=== PATIENT | male | born 1940 | race Caucasian/White ===

== ENCOUNTER → 2017-01-12 | Outpatient (CLI) | payer OTHER ==
[~2017-01-12] MED LIST: ASPCH81 PO; CHOL100010 PO; LISI20TA55 PO; PRED1SUS3 OPL; SIMV40TA2 PO
[2017-01-12 13:03] LABS: BASO % 0.5 %; BASO ABS # 0.04 K/uL (0-0.2); COMPLETE YES; EOS % 5.8 %; HEMATOCRIT 47.2 % (42-52); IG% 0.4 %; LYMPH % 37.8 %; LYMPH ABS # 3.19 K/uL (1.2-3.4); MEAN CELL VOLUME 90.9 fL (80-100); MEAN CORPUSCULAR HEMOGLOBIN 31.6 pg (25-34); MEAN CORPUSCULAR HGB CONC 34.7 g/dl (32-36); MEAN PLATELET VOLUME 10.6 fL (7.4-10.4); MONO % 7.1 %; NEUT % 48.4 %; PLATELET COUNT 206 K/uL (130-400); RED BLOOD COUNT 5.19 M/uL (4.7-6.1); WHITE BLOOD COUNT 8.45 K/uL (4.8-10.8)
[2017-01-12 13:56] LABS: ESTIMATED AVERAGE GLUCOSE 131 mg/dl; HA1C FLAG Normal (Normal)
[2017-01-12 14:16] LABS: BLOOD UREA NITROGEN 21 mg/dl (7-18); BUN/CREATININE RATIO 13.9 (10-20); CALCIUM 9.2 mg/dl (8.5-10.1); CARBON DIOXIDE 26 mmol/L (21-32); CHLORIDE 103 mmol/L (98-107); GLUCOSE 109 mg/dl (70-99); POTASSIUM 4.3 mmol/L (3.5-5.1); SODIUM 138 mmol/L (136-145)
== END | disposition home or self-care (01) ==
LOC: C.LAB 12:11
PROVIDERS: ATTEND Internal Medicine Geriatric Medicine
DX: R73.9 Hyperglycemia, unspecified (principal); N18.9 Chronic kidney disease, unspecified; I12.9 Hypertensive chronic kidney disease with stage 1 through stage 4 chronic kidney disease, or unspecified chronic kidney disease; G47.30 Sleep apnea, unspecified

== ENCOUNTER → 2017-03-26 | Outpatient (CLI) | payer OTHER ==
--- NOTE | 2017-03-27 06:34 | PAP/PSG TECHNICIAN REPORT ---
[facility] [employer] Polysomnogram Report Study name: None Report date: 03/27/2017 Study date: 03/26/2017 Referring Physician: JOCELYNE SANDERS M.D. Name: RADHA PEDROZA Interpreting Physician: Brock Bradford D.O. Date of : 1940 [employer]: Jaylen Mccain RPSGT. Sex: Male Age: 76 StudyType: PSG PAP Weight: 267 lbs Height: 76 years, Height 5' 6" BMI: 43.09 Medications: SIMVASTATIN 40 MG, ASPIRIN 81 MG, LISINOPRIL-HYDROCHLOROTHIAZIDE 20-25 MG, VITAMIN D 1000 UNITS Patient History PATIENT HAS HISTORY OF CHRONIC KIDNEY DISEASE, DYSLIPIDEMIA, SEVERE SLEEP APNEA AND SHORTNESS OF BREATH. HE HAD A SLEEP STUDY DONE IN 2008 AND IS CURRENTLY WEARING CPAP. HE IS HERE FOR AN UPDATE ON HIS CPAP SETTINGS. ESS = 15 RM 6 Parameters Monitored NPSG: E1-M2, E2-M1, Fp1-M2, Fp2-M1, F3-M2, F4-M2, F4-M1, C3-M2, C4-M2, C4-M1, O1-M2, O2-M2, O2-M1, T3-M2, T4-M1, P3-M2, P4-M1, CHIN1, CHIN2, HR, EKG, Legs, PFLOW, SNOR, FLOW, CFLOW, Tidal Volume, THOR, ABDO, SpO2, PLTH, CPRESS, ETCO2 Wave, ETCO2, pH Sleep Architecture Sleep Stages Time at Lights Off 10:31:15 PM STAGES Time (min.) TST (%) Time at Lights On 5:19:45 AM Wake 58.0 -- Total Recording Time (TRT) 409.00 min. N1 35.5 10 Total Sleep Period (TSP) 384.0 min. N2 224.0 64 Total Sleep Time (TST) 350.5min. N3 11.0 3 Awake Time 58.5 min. REM 80.0 23 Wake after Sleep Onset 39.0 min. Sleep Efficiency (SE) 86 % Sleep Onset Latency (RUPALI) 19.0 min. Number of Stage 1 Shifts None Awakenings 18 Stage Changes 88 Number of REM periods 5 REM 80.0 23 REM Latency 63.0 min. NREM 270.5 77 Body Position Analysis Supine Right Left Side Prone Vertical Total Sleep Time (min.) 231.9 162.3 0.0 162.28 0.0 0.0 Total Sleep Time (%) 54% 46% 0% 46 0% N/A% Total Sleep Time REM (min.) 24.5 55.5 0.0 None 0.0 0.0 Total Sleep Time NREM (min.) 163.7 106.8 0.0 None 0.0 0.0 Intermittent Wake (min.) 43.7 14.3 0.0 None 0.0 0.0 Total Sleep Period (%) 54% None None None None None Arousals Myoclonus (PLM) * Events Count Index Events Count Index Spontaneous 33 6 Events Awake (PLMW) 35 36.2 Respiratory 11 1.9 Events Asleep w/ Arousal (PLMA) 28 4.8 PLM 28 5 Events Asleep w/o Arousal (PLMS) 316 54.1 Snoring 7 1 Total Asleep 344 58.9 Total 79 14 Total 379 56 Respiratory Analysis * CA OA MA CH H RERA Total Count 0 0 0 0 23 9 23 Index 0.0 0.0 0.0 0 3.9 2 5.5 Mean Duration 0.0 0.0 0.0 0.00 19.0 17.2 18.5 Longest Duration 0.0 0.0 0.0 0.00 0.0 23.2 27.9 Respiratory Event Summary Total Supine ~Supine Right Left Prone REM NREM Apneas Count 0 0 0 0 N/A N/A 0 0 Index 0.0 0 0 0.0 N/A N/A 0 0 Hypopneas (4% Desat) Count 23 15 8 8 N/A N/A 14 9 Index 3.9 4.8 3 3.0 N/A N/A 10.5 2.0 Apneas & All Hypopneas Count 23 15 8 8 N/A N/A 14 9 Index 3.9 5 3 3 N/A N/A 10.5 2.0 Respiratory Events (Final Armature Tester+All Hyp+RERA) Count 23 24 8 8 N/A N/A 14 9 Index 5.5 8 3 3.0 N/A N/A 11.3 3.8 Respiratory Related Arousal Count 11 24 0 0 N/A N/A 2 9 Index 1.9 4 0 0 N/A N/A 2 2 Snoring Analysis Supine Right Left Prone REM NREM Total Snore duration 3.6 min Snores count 108 44 N/A N/A 32 120 152 Snore mean duration 1.4 Sec Snores index 34 16 N/A N/A 24.0 26.6 26.0 TST with snoring (%) 1.0% Desaturation Event Summary: Minimum %SpO2 Event Count Mean/Min/Max Duration(sec.) Desaturation Index % Time In Bed > 90 28 41.3 / 13.0 / 71.1 4.2 99.0 86 - 90 4 18.5 / 13.0 / 25.8 56.4 1.0 81 - 85 0 N/A 0.0 0.0 76 - 80 0 N/A 0.0 0.0 71 - 75 0 N/A 0.0 0.0 66 - 70 0 N/A 0.0 0.0 61 - 65 0 N/A 0.0 0.0 56 - 60 0 N/A 0.0 0.0 51 - 55 0 N/A 0.0 0.0 < 50 0 N/A 0.0 0.0 Total REM NREM Awake <50% 0.0 min. 0.0 min. 0.0 min. 0.0 min. 51 - 60% 0.0 min. 0.0 min. 0.0 min. 0.0 min. 61 - 70% 0.0 min. 0.0 min. 0.0 min. 0.0 min. 71 - 80% 0.0 min. 0.0 min. 0.0 min. 0.0 min. 81 - 90% 4.3 min. 1.1 min. 2.0 min. 1.2 min. 91 - 100% 403.4 min. 78.9 min. 268.5 min. 55.9 min. Average 93 93 93 93 Minimum SpO2 86 88 86 87 Desaturation Event Index 4.1 9.8 2.4 4.1 # Desat. Events below 89% 4 1 2 1 Time(%) with Saturation below 89% 0.2 0.0 0.1 0.0 Time(min.) with Saturation below 89% 0.6 0.1 0.4 0.1 Time (mins) REM (mins) NREM (mins) % of TST SpO2 Below 90% 12 4 N8 0.3 SpO2 Below 88% 1 0 0 0 Heart Rate Analysis Min (bpm) Max (bpm) Average (bpm) Awake 51 80 63 NREM 46 78 56 REM 46 70 57 Overall 46 78 57 Supplemental O2 Values Minimum O2 level: None Value Start Time End Time [employer] Comments Mr. Pedroza slept in the right and supine positions. No cardiac arrhythmia noted. Leg movements noted. No bruxism noted. CPAP was initiated at +4 CMH2O and up-titrated to an optimal level of +14 CMH2O, which nearly eliminated all respiratory events and snoring. A Resmed Mirage Quattro full face size medium mask was used during titration Mr. Pedroza awoke to use the restroom 0 times during the night. Mr. Pedroza stated I slept as well as I do when I am in my own bed. The final report will be interpreted and signed by a sleep physician. The completed physician report will then be placed in the patient medical record. Therapy Event: Therapy (cm H20) 4 6 7 8 9 10 11 13 14 Total Time at Pressure (min.) 41.4 11.1 62.2 99.9 113.7 37.0 12.3 5.6 25.3 TST at Pressure (min.) 14.4 11.1 47.2 98.4 108.7 36.5 9.3 5.6 19.3 # Periods 1 1 1 1 1 1 1 1 1 Sleep Onset (min.) 19.0 0.0 0.0 0.0 0.0 0.0 0.0 0.0 0.0 REM Onset (min.) N/A N/A 29.6 83.9 0.0 18.8 0.0 N/A N/A Sleep Efficiency % 34 100 75 98 95 98 75 100 76 Wakefulness (%) 65.3 0.0 24.1 1.5 4.4 1.4 24.5 0.0 23.7 Wakefulness (min.) 27.0 0.0 15.0 1.5 5.0 0.5 3.0 0.0 6.0 NREM 1 (%) 16.9 0.0 18.5 7.5 5.3 1.4 20.4 0.0 2.0 NREM 1 (min.) 7.0 0.0 11.5 7.5 6.0 0.5 2.5 0.0 0.5 NREM 2 (%) 17.8 100.0 29.2 75.0 57.3 61.5 36.8 100.0 56.6 NREM 2 (min.) 7.4 11.1 18.2 74.9 65.2 22.8 4.5 5.6 14.3 NREM 3 (%) 0.0 0.0 0.0 0.0 5.7 0.0 0.0 0.0 17.8 NREM 3 (min.) 0.0 0.0 0.0 0.0 6.5 0.0 0.0 0.0 4.5 REM (%) 0.0 0.0 28.1 16.0 27.3 35.8 18.3 0.0 0.0 REM (min.) 0.0 0.0 17.5 16.0 31.0 13.3 2.2 0.0 0.0 # Arousals 9 5 15 26 11 4 3 3 3 Arousal Index 37.6 27.1 19.1 15.9 6.1 6.6 19.4 32.0 9.3 # Snore 11 11 7 39 49 12 9 6 8 Snore Index 46.0 59.6 8.9 23.8 27.0 19.7 58.3 63.9 24.8 AHI 16.7 5.4 3.8 1.8 2.2 8.2 6.5 0.0 6.2 AHI Supine 16.7 5.4 0.0 N/A 1.4 8.2 6.5 0.0 6.2 AHI Non-Supine N/A N/A 4.4 1.8 5.2 N/A N/A N/A N/A NREM AHI 16.7 5.4 0.0 0.0 1.5 0.0 0.0 0.0 6.2 REM AHI N/A N/A 10.3 11.3 3.9 22.6 26.7 N/A N/A RDI 16.7 10.8 3.8 1.8 3.3 9.9 25.9 21.3 6.2 # Obstructive 0 0 0 0 0 0 0 0 0 # Central Ap 0 0 0 0 0 0 0 0 0 # Mixed 0 0 0 0 0 0 0 0 0 # Hypopneas 4 1 3 3 4 5 1 0 2 RERAS 0 1 0 0 2 1 3 2 0 Total Respiratory Events 4 2 3 3 6 6 4 2 2 Time Below SpO2 89.00% (min.) 0.0 0.0 0.0 0.0 0.4 0.1 0.0 0.0 0.0 Mean NREM SpO2 (%) 93 93 94 94 93 93 93 93 93 Mean REM SpO2 (%) N/A N/A 94 94 94 92 93 N/A N/A Mean Sleep SpO2 (%) 93 93 94 94 93 93 93 93 93 Min NREM SpO2 (%) 89 91 90 91 86 89 91 91 89 Min REM SpO2 (%) N/A N/A 91 91 91 88 91 N/A N/A Position Supine (min.) 14.4 11.1 6.6 0.0 85.4 36.5 9.3 5.6 19.3 Position Non-supine (min.) 0.0 0.0 40.6 98.4 23.3 0.0 0.0 0.0 0.0 LM Index Sleep 25.1 43.3 80.1 114.0 35.3 21.4 0.0 0.0 9.3 LM Index NREM 25.1 43.3 107.2 129.6 44.8 30.9 0.0 0.0 9.3 LM Index REM N/A N/A 34.3 33.8 11.6 4.5 0.0 N/A N/A Mean Heart Rate (bpm) 60 57 55 56 57 57 58 57 56 Min Heart Rate (bpm) 53 50 46 47 50 48 53 52 51
--- NOTE | 2017-03-29 11:53 | POLYSOMNOGRAPH REPORT ---
REFERRING PHYSICIAN: Dragan Beltran MD CLINICAL DATA: The patient is a 76-year-old male with a history of severe sleep apnea, diagnosed in approximately 2008. He last had a CPAP titration on 06/07/2010 and had a final pressure of 8 cm. The patient has fatigue. He completed the [place] sleepiness scale and had a score of 15. He has difficulty wearing his CPAP for longer than 4 or 5 hours at night. He is referred back for a CPAP retitration study. This was an in-lab study. SLEEP ARCHITECTURE: The total sleep period was 384.0 minutes. The total sleep time was 350.5 minutes. The sleep efficiency was mildly reduced at 86%. The sleep onset latency was top normal at 19 minutes. Wake after sleep onset was 39 minutes. REM latency was normal at 63 minutes. Sleep consisted of stage N1 at 10%, stage N2 at 64%, stage N3 at 3%, and stage REM 23%. AROUSAL DATA: The patient had a total of 79 arousals including 33 spontaneous, 11 respiratory, 28 PLMs, and 7 snoring arousals. The arousal index was 14. PERIODIC LIMB MOVEMENT DATA: The patient had a total of 344 periodic limb movements of sleep for an index of 58.9, which is severely elevated. There were 28 arousals for a PLM arousal index of 4.8. ELECTROCARDIOGRAM: The underlying cardiac rhythm was normal sinus. The cardiac rates ranged from 46-80 beats per minute with an average of 57 beats per minute. A rare PAC was noted. RESPIRATORY DATA: The patient's nocturnal events were treated with nasal CPAP. The pressure was titrated to a maximum of 14 cm. For the night, he had a total of 23 respiratory events, all hypopneas. The 4% desaturation rule was utilized to score hypopneas. He had no apneas. The apnea-hypopnea index was 3.9, which would be within the limits of normal. The mean duration of hypopnea was 19 seconds. OXIMETRY DATA: The average saturation for the night was 93%. The minimum saturation was 86% and he had a total of only 0.6 minutes with saturations less than 88%. ELEVATORS INSPECTOR'S COMMENTS: Mr. Pedroza slept in the right and supine positions. Leg movements noted. CPAP was initiated at 4 cm and up titrated to an optimal level of 14 cm, which nearly eliminated all respiratory events and snoring. A ResMed Mirage Quattro full face mask size medium was utilized. IMPRESSIONS: 1. Obstructive sleep apnea - titrated to nasal CPAP at 14 cm. 2. Periodic limb movement disorder. COMMENTS: The patient's sleep efficiency was only mildly decreased. His sleep architecture was good. He did have a greater number of arousals than normal. He had frequent periodic limb movements with some arousals. The limb movements may be contributing to his disturbed sleep. His oxygenation was normal for almost all of the night. It is not entirely clear why the patient has had difficulty tolerating nasal CPAP therapy. He persisted with a small number of the events at the final pressure. RECOMMENDATIONS: 1. It is suggested that his CPAP pressures be set at 14 cm. 2. If the patient does not do well at this pressure, consideration could be given to a trial of auto CPAP or perhaps even BiPAP. 3. Consideration is given to pharmacologic therapy for the underlying limb movements if he continues to have difficulty sleeping at night. 4. The patient wore a ResMed Mirage Quattro full facemask, size medium during this study. This could be ordered for him if his perception was that the mask was very comfortable. 5. The patient has a significant elevation of body mass index at 43.09. A weight reduction program is advised. MTDD
== END | disposition home or self-care (01) ==
LOC: C.NEUR 20:00
PROVIDERS: ATTEND Internal Medicine Geriatric Medicine
DX: G47.30 Sleep apnea, unspecified (principal)

== ENCOUNTER → 2017-05-25 | Day surgery (SDC) | payer OTHER ==
[~2017-05-25] VITALS: Ht 177.8 cm; Wt 80.0 kg
[2017-05-25 13:35] VITALS: TEMP 36.1
[2017-05-25 13:37] VITALS: Ht 177.8 cm; Wt 80.0 kg
--- NOTE | 2017-05-25 14:05 | Endo History and Physical ---
History & Physical Date of Service: May 25, 2017. Chief Complaint: SCREENING FOR COLON CA Referring Physician: DR. JOCELYNE SANDERS History of Present Illness For colonoscopy Past Surgical History Hx Cardiac Surgery: No Hx Internal Defibrillator: No Hx Pacemaker: No Hx Abdominal Surgery: No Hx of Implantable Prosthesis: No Hx Post-Op Nausea and Vomiting: No Hx Cancer Surgery: No Hx Thoracic Surgery: No Hx Orthopedic: Yes (RIGHT HAND FINGER) Hx Urinary Tract Surgery: No Family History None Social History Smoking Status: Never Smoker Hx Substance Use: No Hx Alcohol Use: No Allergies Coded Allergies: No Known Allergies (Unverified , 05/25/17) Current Medications Reported Home Medications Medications Dose Route/Sig Max Daily Dose Days Date Category Pred Forte 1% Oph (Prednisolone Acetate) Susp 1 Drop OPL BID 06/05/16 Reported Vitamin D (Cholecalciferol) 1,000 Inter.unit Tab 1,000 Inter.unit PO QAM 05/19/16 Reported Aspirin Tab-Chewable * (Aspirin) 81 Mg Chew 81 Mg PO 3XW 04/07/11 Reported Zocor (Simvastatin) 40 Mg Tab 40 Mg PO QPM 04/07/11 Reported Prinzide 20-25MG (HCTZ/Lisinopril) Tab 1 Tab PO QAM 04/07/11 Reported Vital Signs Weight (Kilograms): 80 Height (Feet): 5 Height (Inches): 10 Date Time Temp Pulse Resp B/P (MAP) Pulse Ox O2 Delivery O2 Flow Rate FiO2 05/25/17 13:35 36.1 93 18 138/76 (96) 95 Room Air Physical Exam General Appearance: + obese Respiratory/Chest: Respiratory effort: no dyspnea Cardiovascular: Apical Impulse: not displaced Heart Auscultation: RRR Abdomen: Inspection & Palpation: soft Assessment and Plan Heme positive stool for colonoscopy
--- NOTE | 2017-05-25 14:35 | Discharge Instructions ---
Endoscopy Patient Instructions Date / Procedure(s) Performed May 25, 2017. Colonoscopy Allergy Information Coded Allergies: No Known Allergies (Unverified , 05/25/17) Discharge Date / Findings May 25, 2017. Diverticulosis, hemorrhoids,polyp Medication Instructions Restart Stopped Medication(s): resume meds Reported Home Medications Medications Dose Route/Sig Max Daily Dose Days Date Category Pred Forte 1% Oph (Prednisolone Acetate) Susp 1 Drop OPL BID 06/05/16 Reported Vitamin D (Cholecalciferol) 1,000 Inter.unit Tab 1,000 Inter.unit PO QAM 05/19/16 Reported Aspirin Tab-Chewable * (Aspirin) 81 Mg Chew 81 Mg PO 3XW 04/07/11 Reported Zocor (Simvastatin) 40 Mg Tab 40 Mg PO QPM 04/07/11 Reported Prinzide 20-25MG (HCTZ/Lisinopril) Tab 1 Tab PO QAM 04/07/11 Reported Provider Instructions Activity Restrictions - No exercising or heavy lifting for 24 hours. - Do not drink alcohol the day of the procedure. - Do not drive a car or operate machinery until the day after the procedure. - Do not make any important decisions or sign important papers in 24 hours after the procedure. Following Day: - Return to full activity which may include returning to work/school. Diet Start your diet with liquids and light foods (jello, soup, juice, toast). Then eat your usual diet if not nauseated. Treatment For Common After Affects For mild abdominal pain, bloating, or excessive gas: - Rest - Eat lightly - Lie on right side Follow-Up Information Follow-up with DR. JOCELYNE SANDERS as scheduled Anesthesia Information What You Should Know You have had a procedure that required some medicine to reduce anxiety and discomfort. This treatment is called moderate sedation. After receiving the treatment, you may be sleepy, but you will be able to breathe on your own. The effects of the treatment may last for several hours. Follow these instructions along with Activity/Diet recommendations noted above: * Do NOT do anything where dizziness or clumsiness would be dangerous. * Rest quietly at home today, then you can be up and about tomorrow. * Have a responsible person stay with you the rest of today. * You may have had an I.V. today. If so, you may take the dressing off later today. Recommendations Call your doctor if: * Trouble breathing * Continuous vomiting for more than 24 hours * Temperature above 101 degrees * Severe abdominal pain or bloating * Pain not relieved by pain medicine ordered * There is increased drainage or redness from any incision * A large amount of rectal bleeding greater than 2-3 tablespoons. (If you had a polyp/s removed or have hemorrhoids, a small amount of blood - from the rectum is to be expected.) * You have any unanswered questions or concerns. IN THE EVENT OF A SERIOUS EMERGENCY, GO TO THE NEAREST EMERGENCY ROOM Your discharge instructions were prepared by provider Jefferson Macedo. Patient Instructions Signature Page Ben Pedroza Patient (or Guardian) Signature/Date: I have read and understand the instructions given to me by my caregivers. Caregiver/RN/Doctor Signature/Date: The above-named patient and/or guardian has received patient instructions on this date. + Original Patient Signature Page (only) stays with chart. Please make copy for patient.
--- NOTE | 2017-05-25 14:39 | GI REPORT ---
Procedure Date: 05/25/2017 2:18 PM Procedure: Colonoscopy Indications: Heme positive stool Medicines: Propofol total dose 250 mg IV, Lidocaine 40 mg IV, Phenylephrine 50 mcg IV Complications: No immediate complications. Estimated Blood Loss: Estimated blood loss was minimal. Procedure: Pre-Anesthesia Assessment: - Prior to the procedure, a History and Physical was performed, and patient medications, allergies and sensitivities were reviewed. The patient's tolerance of previous anesthesia was reviewed. - The risks and benefits of the procedure and the sedation options and risks were discussed with the patient. All questions were answered and informed consent was obtained. After I obtained informed consent, the scope was passed under direct vision. Throughout the procedure, the patient's blood pressure, pulse, and oxygen saturations were monitored continuously. The scope was introduced through the anus and advanced to the cecum, identified by appendiceal orifice and ileocecal valve. The colonoscopy was performed without difficulty. The patient tolerated the procedure well. The quality of the bowel preparation was good. Findings: Multiple diverticula were found in the sigmoid colon. Non-bleeding internal hemorrhoids were found during endoscopy. The hemorrhoids were mild. A 4 mm polyp was found in the proximal ascending colon. The polyp was sessile. The polyp was removed with a cold snare. Resection and retrieval were complete. Estimated blood loss was minimal. Impression: - Diverticulosis in the sigmoid colon. - Non-bleeding internal hemorrhoids. - One 4 mm polyp in the proximal ascending colon, removed with a cold snare. Resected and retrieved. Recommendation: - Discharge patient to home. - Continue present medications. - Await pathology results. - Return to primary care physician PRN. Jefferson Macedo M.D. Jefferson Macedo MD 05/25/2017 2:38:25 PM This report has been signed electronically. Note Initiated On: 05/25/2017 2:18 PM I attest to the content of the Intraoperative Record and orders documented therein, exceptions below
--- NOTE | 2017-05-25 14:56 | Anesthesiology Progress Note ---
Anesthesia Post Op Note Date & Time May 25, 2017 at 14:55 Vital Signs Pain Intensity: 0 Vital Signs Past 12 Hours Date Time Temp Pulse Resp B/P (MAP) Pulse Ox O2 Delivery O2 Flow Rate FiO2 05/25/17 14:53 74 16 95/55 (68) 94 Room Air 05/25/17 14:38 75 12 92/54 (67) 96 Room Air 05/25/17 13:35 36.1 93 18 138/76 (96) 95 Room Air Notes Mental Status: alert / awake / arousable, participated in evaluation Pt Amnestic to Procedure: Yes Nausea / Vomiting: adequately controlled Pain: adequately controlled Airway Patency, RR, SpO2: stable & adequate BP & HR: stable & adequate Hydration State: stable & adequate Anesthetic Complications: no major complications apparent
[2017-05-25 15:08] VITALS: BP 101/55; PULSE 76; O2SAT 94
== END | disposition home or self-care (01) ==
LOC: C.GI 13:03
PROVIDERS: ATTEND Internal Medicine Gastroenterology
DX: R19.5 Other fecal abnormalities (principal); K57.30 Diverticulosis of large intestine without perforation or abscess without bleeding; K64.8 Other hemorrhoids; D12.2 Benign neoplasm of ascending colon; G47.33 Obstructive sleep apnea (adult) (pediatric); I10 Essential (primary) hypertension; E66.9 Obesity, unspecified; Z68.25 Body mass index [BMI] 25.0-25.9, adult; Z98.49 Cataract extraction status, unspecified eye; M19.90 Unspecified osteoarthritis, unspecified site

== ENCOUNTER → 2017-07-20 | Outpatient (CLI) | payer OTHER ==
[2017-07-20 13:22] LABS: BASO % 0.6 %; BASO ABS # 0.04 K/uL (0-0.2); COMPLETE YES; EOS % 6.2 %; HEMATOCRIT 43.1 % (42-52); IG% 0.6 %; LYMPH % 30.5 %; LYMPH ABS # 2.01 K/uL (1.2-3.4); MEAN CORPUSCULAR HEMOGLOBIN 30.9 pg (25-34); MEAN CORPUSCULAR HGB CONC 34.3 g/dl (32-36); MEAN PLATELET VOLUME 10.5 fL (7.4-10.4); MONO % 10.6 %; NEUT % 51.5 %; PLATELET COUNT 216 K/uL (130-400); RED BLOOD COUNT 4.79 M/uL (4.7-6.1)
[2017-07-20 13:41] LABS: ESTIMATED AVERAGE GLUCOSE 137 mg/dl; HA1C FLAG Normal (Normal)
[2017-07-20 14:19] LABS: POTASSIUM 4.6 mmol/L (3.5-5.1); SODIUM 135 mmol/L (136-145)
[2017-07-20 14:20] LABS: ALB/GLOB RATIO 0.8 (0.9-2); ALKALINE PHOSPHATASE 90 U/L (45-117); ALT/SGPT 24 U/L (12-78); BLOOD UREA NITROGEN 18 mg/dl (7-18); BUN/CREATININE RATIO 12.8 (10-20); CALCIUM 8.8 mg/dl (8.5-10.1); CARBON DIOXIDE 27 mmol/L (21-32); CHLORIDE 102 mmol/L (98-107); CHOLESTEROL 142 mg/dl (0-200); GLUCOSE 101 mg/dl (70-99); HDL CHOLESTEROL 48 mg/dl; LDL CHOLESTEROL CALCULATED 67 mg/dl; TRIGLYCERIDES 136 mg/dl (0-150); VERY LOW DENSITY LIPOPROT CALC 27 mg/dl
[2017-07-20 14:26] LABS: AST/SGOT 20 U/L (15-37)
--- NOTE | 2017-07-30 07:58 | CODING QUERY MEDICAL NECESSITY ---
CQSUPPORTING DIAGNOSIS NEEDED A supporting diagnosis is required for the test/procedure performed on this patient in order for us to be reimbursed by the patient's insurance. Please provide a supporting diagnosis for the following test/procedure listed below next to the test name along with your signature. *If there is no additional diagnosis for this patient that would support the following test/procedure please document that below next to the test/procedure. Test(s)/Procedure(s) that require a supporting diagnosis: DOS 07/20/17 VITAMIN B12 TEST Provider Signature: Date: Thank you [facility] Once completed, please kindly fax back to [phone] For questions please call [phone]
== END | disposition home or self-care (01) ==
LOC: C.LAB 11:13
PROVIDERS: ATTEND Internal Medicine Geriatric Medicine
DX: G62.9 Polyneuropathy, unspecified (principal); E78.5 Hyperlipidemia, unspecified; R73.9 Hyperglycemia, unspecified; I12.9 Hypertensive chronic kidney disease with stage 1 through stage 4 chronic kidney disease, or unspecified chronic kidney disease; N18.9 Chronic kidney disease, unspecified; G47.30 Sleep apnea, unspecified; E55.9 Vitamin D deficiency, unspecified

== ENCOUNTER → 2017-10-23 | Outpatient (CLI) | payer OTHER ==
[~2017-10-23] VITALS: Ht 167.6 cm; Wt 124.8 kg
[2017-10-23 12:31] VITALS: BP 135/81; PULSE 69; Ht 167.6 cm; Wt 124.8 kg
== END | disposition home or self-care (01) ==
LOC: C.NEUR 12:14
PROVIDERS: ATTEND Internal Medicine Pulmonary Disease
DX: G47.30 Sleep apnea, unspecified (principal)

== ENCOUNTER → 2018-02-04 | Outpatient (CLI) | payer OTHER ==
--- NOTE | 2018-02-04 19:25 | DIAGNOSTIC IMAGING REPORT ---
LUMBAR SPINE 5 VIEWS CLINICAL HISTORY: Chronic low back pain. FINDINGS: Five views of the lumbar spine are correlated with MRI of the lumbar spine dated 10/24/2010. The skeletal structures are osteopenic. There is no radiographic evidence of fracture or malalignment. Vertebral body height and alignment are maintained throughout the lumbar spine. There is straightening of the lumbar lordosis. Large anterior and marginal osteophytes are seen throughout. There is mild lumbar levocurvature centered at L3. The transverse and spinous processes appear intact. There is no radiographic evidence of spondylolysis. Advanced multilevel facet arthropathy is noted. Yvskzihb-cq-lahbvypw disc space narrowing is seen at all levels, greatest at L4-L5 where there is associated endplate sclerosis. The bony pelvis is intact as imaged. Sclerotic change is noted in the sacroiliac joints. Large enthesophytes arise from the anterior superior iliac spine on the right. Numerous phleboliths are seen in the pelvis. No bowel obstruction is seen. IMPRESSION: 1. No acute bony abnormalities seen involving the lumbar spine. 2. Osteopenia with advanced lumbosacral spondylosis and mild scoliosis as above. Dictated: 02/04/2018 6:57 PM Transcribed: 02/04/2018 7:25 PM Antwon Electronically signed by: Raj Guerrier M.D. 02/05/2018 7:06 AM Dictated Date/Time: 02/04/2018 6:57 PM
== END | disposition home or self-care (01) ==
LOC: C.RAD 17:06
PROVIDERS: ATTEND Internal Medicine Geriatric Medicine
DX: M54.5 Low back pain (principal)

== ENCOUNTER 2018-03-26 16:51 | Inpatient (IN) | payer OTHER ==
[~2018-03-26] VITALS: Ht 177.8 cm; Wt 121.0 kg
[2018-03-26 17:43] LABS: BASO % 0.3 %; BASO ABS # 0.03 K/uL (0-0.2); EOS % 4.5 %; EOS ABS # 0.46 K/uL (0-0.5); HEMOGLOBIN 14.4 g/dL (14.0-18.0); IG# 0.06 K/uL (0.00-0.02); LYMPH % 24.5 %; LYMPH ABS # 2.52 K/uL (1.2-3.4); MEAN CELL VOLUME 89.2 fL (80-100); MEAN CORPUSCULAR HEMOGLOBIN 30.6 pg (25-34); MEAN CORPUSCULAR HGB CONC 34.3 g/dl (32-36); MEAN PLATELET VOLUME 10.1 fL (7.4-10.4); MONO % 10.4 %; MONO ABS # 1.07 K/uL (0.11-0.59); NEUT % 59.7 %; NEUT ABS # 6.16 K/uL (1.4-6.5); PLATELET COUNT 224 K/uL (130-400); RED CELL DISTRIBUTION WIDTH CV 13.2 % (11.5-14.5); RED CELL DISTRIBUTION WIDTH SD 43.4 fL (36.4-46.3)
[2018-03-26 17:54] LABS: PTT PATIENT 25.9 SECONDS (21.0-31.0)
[2018-03-26] MEDS ORDERED: ASPI81TA28 PO (17:55)
[2018-03-26] MEDS ORDERED: SIMV40TA2 PO (17:55)
[2018-03-26] MEDS ORDERED: CHOL1000 PO (17:55)
[2018-03-26] MEDS ORDERED: LISI20TA55 PO (17:55)
[2018-03-26 18:01] LABS: ALBUMIN 3.3 gm/dl (3.4-5.0); ALT/SGPT 23 U/L (12-78); AST/SGOT 31 U/L (15-37); BLOOD UREA NITROGEN 20 mg/dl (7-18); CALCIUM 8.9 mg/dl (8.5-10.1); CARBON DIOXIDE 26 mmol/L (21-32); CREATININE 1.49 mg/dl (0.60-1.40); GLUCOSE 146 mg/dl (70-99); POTASSIUM 3.7 mmol/L (3.5-5.1); SODIUM 136 mmol/L (136-145)
[2018-03-26] MEDS ORDERED: ASPIRIN 81 MG CHEW PO STA (18:05)
[2018-03-26 18:06] LABS: ALKALINE PHOSPHATASE 95 U/L (45-117); CKMB 1.9 ng/ml (0.5-3.6); TOTAL PROTEIN 8.2 gm/dl (6.4-8.2)
[2018-03-26] MEDS ORDERED: NITROGLYCERIN 2% OINTMENT 30GM TUBE EXT ONE ×2 (18:15→22:01)
--- NOTE | 2018-03-26 18:24 | DIAGNOSTIC IMAGING REPORT ---
CHEST ONE VIEW PORTABLE HISTORY: 77 years-old Male Evaluate Fever/Sepsis acute fever and sepsis COMPARISON: Chest radiographs 12/01/2006 TECHNIQUE: Portable AP view of the chest FINDINGS: Cardiac silhouette is enlarged. Mild pulmonary vascular congestion without overt pulmonary edema. There is no pneumothorax or large pleural effusion. Moderate right hemidiaphragmatic elevation with subsegmental bibasilar opacities. Bones of the chest appear grossly intact. Degenerative changes of the shoulders and spine. IMPRESSION: 1. Cardiomegaly with mild pulmonary vascular congestion. 2. Moderate right hemidiaphragm elevation with subsegmental bibasilar opacities favoring atelectasis. The above report was generated using voice recognition software. It may contain grammatical, syntax or spelling errors. Electronically signed by: Sterling Nuñez M.D. 03/26/2018 6:23 PM Dictated Date/Time: 03/26/2018 6:20 PM
--- NOTE | 2018-03-26 18:36 | EMERGENCY ROOM VISIT NOTE ---
History Report prepared by Shreyas: Marilee Mon Under the Supervision of: Dr. Nicolas Anthony D.O. First contact with patient: 17:07 Chief Complaint: CHEST PAIN Stated Complaint: CHEST DISCOMFORT, HEAVINESS, IN TOP OF CHEST History of Present Illness The patient is a 77 year old male who presents to the Emergency Room with complaints of intermittent chest pain for four days. Per , he has had chest pain for one month. He states that he has been feeling weak for two months. He describes the chest tightness. The patient states that as the chest pain dissipates he experiences left arm pain. He notes the pain is worsened with exertion. He has had a stress test several years ago. He has a family history of CAD, [place] less than 55 years old. He states his father of a heart attack at 52 years old. They contacted his PCP, though was advised to come to the ED for further evaluation. He takes Aspirin three times a week. He took Aspirin this morning. Source of History: patient, spouse/significant other Onset: four days Position: chest Quality: other (tightness) Timing: other (persistent) Modifying Factors (Worsening): exertion Associated Symptoms: + weakness Note: Notes left arm pain. Review of Systems See HPI for pertinent positives & negatives. A total of 10 systems reviewed and were otherwise negative. Past Medical & Surgical Medical Problems: (1) Lossed three fingers Surgical Problems: (1) History of appendectomy Family History Cancer Diabetes mellitus Gallbladder disease Heart disease Hypertension Stroke Social History Smoking Status: Never Smoker Smokeless Tobacco Use: No Alcohol Use: none Drug Use: none Marital Status: Housing Status: lives with significant other Occupation Status: retired Current/Historical Medications Scheduled Aspirin (Aspirin Ec), 81 MG PO 3XWK Cholecalciferol (Vitamin D3), 1 TAB PO DAILY Lisinopril/Hctz (Prinzide 20-25MG), 1 TAB PO DAILY Simvastatin (Zocor), 40 MG PO DAILY Allergies Coded Allergies: No Known Allergies (Unverified , 03/26/18) Physical Exam Vital Signs Date Time Temp Pulse Resp B/P (MAP) Pulse Ox O2 Delivery O2 Flow Rate FiO2 03/26/18 18:26 75 23 151/80 95 Room Air 03/26/18 17:08 81 03/26/18 16:54 36.7 94 18 165/77 94 Room Air Physical Exam CONSTITUTIONAL/VITAL SIGNS: Reviewed / noted above. GENERAL: Non-toxic in appearance. INTEGUMENTARY: Warm, dry, and [place]. HEAD: Normocephalic. EYES: without scleral icterus or trauma. ENT/OROPHARYNX: clear and moist. LYMPHADENOPATHY/NECK: Is supple without lymphadenopathy or meningismus. RESPIRATORY: Lungs clear and equal. CARDIOVASCULAR: Regular rate and rhythm. GI/ABDOMEN: Soft and nontender. No organomegaly or pulsatile mass. No rebound or guarding. Normal bowel sounds. EXTREMITIES: Warm and well perfused. BACK: No CVA tenderness. NEUROLOGICAL: Intact without focal deficits. PSYCHIATRIC: normal affect. MUSCULOSKELETAL: Normally developed with good muscle tone. Medical Decision & Procedures ER Provider Diagnostic Interpretation: Radiology results as stated below per my review and radiologist interpretation: CHEST ONE VIEW PORTABLE HISTORY: 77 years-old Male Evaluate Fever/Sepsis acute fever and sepsis COMPARISON: Chest radiographs 12/01/2006 TECHNIQUE: Portable AP view of the chest FINDINGS: Cardiac silhouette is enlarged. Mild pulmonary vascular congestion without overt pulmonary edema. There is no pneumothorax or large pleural effusion. Moderate right hemidiaphragmatic elevation with subsegmental bibasilar opacities. Bones of the chest appear grossly intact. Degenerative changes of the shoulders and spine. IMPRESSION: 1. Cardiomegaly with mild pulmonary vascular congestion. 2. Moderate right hemidiaphragm elevation with subsegmental bibasilar opacities favoring atelectasis. The above report was generated using voice recognition software. It may contain grammatical, syntax or spelling errors. Electronically signed by: Sterling Nuñez M.D. 03/26/2018 6:23 PM Dictated Date/Time: 03/26/2018 6:20 PM Laboratory Results 03/26/18 17:26 Red Blood Count 4.71, Mean Corpuscular Volume 89.2, Mean Corpuscular Hemoglobin 30.6, Mean Corpuscular Hemoglobin Concent 34.3, Mean Platelet Volume 10.1, Neutrophils (%) (Auto) 59.7, Lymphocytes (%) (Auto) 24.5, Monocytes (%) (Auto) 10.4, Eosinophils (%) (Auto) 4.5, Basophils (%) (Auto) 0.3, Neutrophils # (Auto ) 6.16, Lymphocytes # (Auto) 2.52, Monocytes # (Auto) 1.07, Eosinophils # (Auto ) 0.46, Basophils # (Auto) 0.03 03/26/18 17:26 Test 03/26/18 17:26 White Blood Count 10.30 K/uL (4.8-10.8) Red Blood Count 4.71 M/uL (4.7-6.1) Hemoglobin 14.4 g/dL (14.0-18.0) Hematocrit 42.0 % (42-52) Mean Corpuscular Volume 89.2 fL (80-100) Mean Corpuscular Hemoglobin 30.6 pg (25-34) Mean Corpuscular Hemoglobin Concent 34.3 g/dl (32-36) Platelet Count 224 K/uL (130-400) Mean Platelet Volume 10.1 fL (7.4-10.4) Neutrophils (%) (Auto) 59.7 % Lymphocytes (%) (Auto) 24.5 % Monocytes (%) (Auto) 10.4 % Eosinophils (%) (Auto) 4.5 % Basophils (%) (Auto) 0.3 % Neutrophils # (Auto) 6.16 K/uL (1.4-6.5) Lymphocytes # (Auto) 2.52 K/uL (1.2-3.4) Monocytes # (Auto) 1.07 K/uL (0.11-0.59) Eosinophils # (Auto) 0.46 K/uL (0-0.5) Basophils # (Auto) 0.03 K/uL (0-0.2) RDW Standard Deviation 43.4 fL (36.4-46.3) RDW Coefficient of Variation 13.2 % (11.5-14.5) Immature Granulocyte % (Auto) 0.6 % Immature Granulocyte # (Auto) 0.06 K/uL (0.00-0.02) Prothrombin Time 10.9 SECONDS (9.0-12.0) Prothromb Time International Ratio 1.0 (0.9-1.1) Activated Partial Thromboplast Time 25.9 SECONDS (21.0-31.0) Partial Thromboplastin Ratio 1.0 Anion Gap 7.0 mmol/L (3-11) Est Creatinine Clear Calc Drug Dose 52.9 ml/min Estimated GFR () 51.0 Estimated GFR (Non- 44.0 BUN/Creatinine Ratio 13.7 (10-20) Calcium Level 8.9 mg/dl (8.5-10.1) Total Bilirubin 0.5 mg/dl (0.2-1) Direct Bilirubin 0.1 mg/dl (0-0.2) Aspartate Amino Transf (AST/SGOT) 31 U/L (15-37) Alanine Aminotransferase (ALT/SGPT) 23 U/L (12-78) Alkaline Phosphatase 95 U/L (45-117) Total Creatine Kinase 219 U/L (39-308) Creatine Kinase MB 1.9 ng/ml (0.5-3.6) Creatine Kinase MB Ratio 0.9 (0-3.0) Troponin I < 0.015 ng/ml (0-0.045) Total Protein 8.2 gm/dl (6.4-8.2) Albumin 3.3 gm/dl (3.4-5.0) Laboratory results as stated above per my review. Medications Administered Medications (Trade) Dose Ordered Sig/Daljit Route Start Time Stop Time Status Last Admin Dose Admin Aspirin (Aspirin Chew) 324 mg NOW STAT PO 03/26/18 18:05 03/26/18 18:07 DC 03/26/18 18:25 324 MG Nitroglycerin (Nitroglycerin 2% Oint) 1 inch NOW ONCE EXT 03/26/18 18:15 03/26/18 18:16 DC 03/26/18 18:25 1 INCH ECG Per My Interpretation Indication: chest pain Rate (beats per minute): 82 Rhythm: normal sinus Findings: RBBB, no ectopy, other (No ST elevation) ED Course 1723: Previous medical records were reviewed. The patient was evaluated in room C6. A complete history and physical examination was performed. 180: Ordered Aspirin 324 mg PO 181: Ordered Nitroglycerin 1 inch EXT 1840: I spoke with Dr. Lim, hospitalist. We discussed the patient's case. The patient will be evaluated by the [facility] for further management. Medical Decision Differentials considered include acute myocardial infarction, acute coronary syndrome, myocarditis, pericarditis, pericardial effusions /tamponade, esophageal perforation, thoracic aortic dissection, pulmonary embolism, pneumonia, pneumothorax, pancreatitis, shingles, acute cholecystitis, and perforated abdominal viscus. This is a 77-year-old male who presents to the ED with a chief complaint of chest heaviness. The patient has had the symptoms intermittently for the past month or so. It seems to be worse with activity. When he is climbing up steps or cutting wood, his pain increases and it subsides after resting. The patient states that he then feels fatigued for about a couple of days afterwards. He also has increased fatigability. The patient has shortness of breath associated with chest pain but he is currently not having any symptoms. His initial blood pressure was elevated. His physical exam was unremarkable. Work was unremarkable. He is not anemic. His troponin was negative. EKG shows a normal sinus rhythm. Chest x-ray reveals some cardiomegaly with some mild congestive changes. The patient was given Nitropaste and aspirin p.o. He will be seen by the hospitalist service for further inpatient evaluation and care. His symptoms are most consistent with known unstable angina. Medication Reconcilliation Current Medication List: was personally reviewed by me Blood Pressure Screening Patient's blood pressure: Elevated blood pressure monitored by hospitalist Consults Time Called: 1834 Consulting Physician: Dr. Lim, hospitalist Returned Call: [address] Lim, hospitalist. We discussed the patient's case. The patient will be evaluated by the [facility] for further management. Impression Primary Impression: Unstable angina Scribe Attestation The scribe's documentation has been prepared under my direction and personally reviewed by me in its entirety. I confirm that the note above accurately reflects all work, treatment, procedures, and medical decision making performed by me. Departure Information Dispostion Being Evaluated By Hospitalist Referrals Dragan Beltran M.D. (PCP) Patient Instructions My [facility]
[2018-03-26] MEDS ORDERED: ACETAMINOPHEN 325 MG TAB PO PRN (19:15)
[2018-03-26] MEDS ORDERED: ONDANSETRON INJ 2 MG/ML 2 ML VIAL IV PRN (19:15)
[2018-03-26] MEDS ORDERED: POLYETHYLENE (MIRALAX) 17 GM PACK PO PRN (19:15)
[2018-03-26] MEDS ORDERED: HydrALAZINE HCL 20 MG/ML VIAL IV. PRN (19:15)
[2018-03-26] MEDS ORDERED: MoRPHine SULFATE 2 MG/ML CARP IV PRN (19:15)
[2018-03-26] MEDS ORDERED: MAGNESIUM HYDROXIDE SUSP 30 ML UDC PO PRN (19:15)
[2018-03-26] MEDS ORDERED: ALUMINUM/MAGNESIUM/SIMETH (MAALOX MAX) 30 ML UDC PO PRN (19:15)
[2018-03-26] MEDS ORDERED: NITROGLYCERIN 0.4 MG SL PER TAB CHARGE SL PRN (19:15)
--- NOTE | 2018-03-26 19:23 | History and Physical ---
History & Physical Date & Time of Service: March 26, 2018 at 19:14 Chief Complaint: Chest Discomfort, Heaviness, In Top Of Chest Primary Care Physician: Dragan Beltran M.D. History of Present Illness Source: patient, family ( and daughter at bedside), clinic records, hospital records Patient is a pleasant 77 y/o male, with PMHx of HTN, CKD stage III, and HLD, who presented to the ED because of worsening L-sided chest pain x1 month. Pain will come and go. Radiates down L arm. Last a few minutes then resolved. Denies any alleviating/aggravating factors. Note increasing fatigue. Notes worsening dyspnea on exertion. Patient denies any fever, chills, sweats, lightheadedness, dizziness, vision changes, palpitations, edema, wheezing, cough, abdominal pain , nausea, vomiting, diarrhea, urinary symptoms, melena, numbness/tingling, weakness, muscle/joint pain, anxiety/depression, active bleeding, or new skin discoloration/changes. Past Medical/Surgical History Medical Problems: HTN HLD CKD stage III Surgical Problems: History of appendectomy work accident s/p amputation of L hand 2/3/4 digit s/p hernia repair Family History Cancer Diabetes mellitus Gallbladder disease Heart disease Hypertension Stroke Social History Smoking Status: Never Smoker Smokeless Tobacco Use: No Drug Use: none Marital Status: Occupational Status: retired Allergies Coded Allergies: No Known Allergies (Unverified , 03/26/18) Home Medications Scheduled Aspirin (Aspirin Ec), 81 MG PO 3XWK Cholecalciferol (Vitamin D3), 1 TAB PO DAILY Lisinopril/Hctz (Prinzide 20-25MG), 1 TAB PO DAILY Simvastatin (Zocor), 40 MG PO DAILY Physical Exam Vital Signs Date Time Temp Pulse Resp B/P (MAP) Pulse Ox O2 Delivery O2 Flow Rate FiO2 03/26/18 18:26 75 23 151/80 95 Room Air 03/26/18 17:08 81 03/26/18 16:54 36.7 94 18 165/77 94 Room Air General Appearance: no apparent distress, + obese Head: normocephalic, atraumatic Eyes: normal inspection, PERRL ENT: hearing grossly normal Neck: supple, no JVD Respiratory/Chest: lungs clear, no respiratory distress, no accessory muscle use Cardiovascular: regular rate, rhythm Abdomen/GI: normal bowel sounds, non tender, soft Back: normal inspection Extremities/Musculoskelatal: no calf tenderness, no pedal edema Neurologic/Psych: alert, normal mood/affect, oriented x 3 Skin: normal color, warm/dry, no rash Diagnostics Laboratory Results Results Past 24 Hours Test 03/26/18 17:26 03/26/18 18:59 Range/Units White Blood Count 10.30 4.8-10.8 K/uL Red Blood Count 4.71 4.7-6.1 M/uL Hemoglobin 14.4 14.0-18.0 g/dL Hematocrit 42.0 42-52 % Mean Corpuscular Volume 89.2 80-100 fL Mean Corpuscular Hemoglobin 30.6 25-34 pg Mean Corpuscular Hemoglobin Concent 34.3 32-36 g/dl Platelet Count 224 130-400 K/uL Mean Platelet Volume 10.1 7.4-10.4 fL Neutrophils (%) (Auto) 59.7 % Lymphocytes (%) (Auto) 24.5 % Monocytes (%) (Auto) 10.4 % Eosinophils (%) (Auto) 4.5 % Basophils (%) (Auto) 0.3 % Neutrophils # (Auto) 6.16 1.4-6.5 K/uL Lymphocytes # (Auto) 2.52 1.2-3.4 K/uL Monocytes # (Auto) 1.07 0.11-0.59 K/uL Eosinophils # (Auto) 0.46 0-0.5 K/uL Basophils # (Auto) 0.03 0-0.2 K/uL RDW Standard Deviation 43.4 36.4-46.3 fL RDW Coefficient of Variation 13.2 11.5-14.5 % Immature Granulocyte % (Auto) 0.6 % Immature Granulocyte # (Auto) 0.06 0.00-0.02 K/uL Prothrombin Time 10.9 9.0-12.0 SECONDS Prothromb Time International Ratio 1.0 0.9-1.1 Activated Partial Thromboplast Time 25.9 21.0-31.0 SECONDS Partial Thromboplastin Ratio 1.0 Sodium Level 136 136-145 mmol/L Potassium Level 3.7 3.5-5.1 mmol/L Chloride Level 104 98-107 mmol/L Carbon Dioxide Level 26 21-32 mmol/L Anion Gap 7.0 3-11 mmol/L Blood Urea Nitrogen 20 7-18 mg/dl Creatinine 1.49 0.60-1.40 mg/dl Est Creatinine Clear Calc Drug Dose 52.9 ml/min Estimated GFR () 51.0 Estimated GFR (Non- 44.0 BUN/Creatinine Ratio 13.7 10-20 Random Glucose 146 70-99 mg/dl Calcium Level 8.9 8.5-10.1 mg/dl Total Bilirubin 0.5 0.2-1 mg/dl Direct Bilirubin 0.1 0-0.2 mg/dl Aspartate Amino Transf (AST/SGOT) 31 15-37 U/L Alanine Aminotransferase (ALT/SGPT) 23 12-78 U/L Alkaline Phosphatase 95 45-117 U/L Total Creatine Kinase 219 39-308 U/L Creatine Kinase MB 1.9 0.5-3.6 ng/ml Creatine Kinase MB Ratio 0.9 0-3.0 Troponin I < 0.015 0-0.045 ng/ml Total Protein 8.2 6.4-8.2 gm/dl Albumin 3.3 3.4-5.0 gm/dl Diagnostic Radiology CHEST ONE VIEW PORTABLE HISTORY: 77 years-old Male Evaluate Fever/Sepsis acute fever and sepsis COMPARISON: Chest radiographs 12/01/2006 TECHNIQUE: Portable AP view of the chest FINDINGS: Cardiac silhouette is enlarged. Mild pulmonary vascular congestion without overt pulmonary edema. There is no pneumothorax or large pleural effusion. Moderate right hemidiaphragmatic elevation with subsegmental bibasilar opacities. Bones of the chest appear grossly intact. Degenerative changes of the shoulders and spine. IMPRESSION: 1. Cardiomegaly with mild pulmonary vascular congestion. 2. Moderate right hemidiaphragm elevation with subsegmental bibasilar opacities favoring atelectasis. The above report was generated using voice recognition software. It may contain grammatical, syntax or spelling errors. Electronically signed by: Sterling Nuñez M.D. 03/26/2018 6:23 PM Dictated Date/Time: 03/26/2018 6:20 PM The status of this report is Signed. Draft = Not yet reviewed or approved by Radiologist. Signed = Reviewed and approved by Radiologist. RADHA SERRANO ID:[id number] 26-MAR-2018 17:04:00 [facility] Normal sinus rhythm Left axis deviation Right bundle branch block Minimal voltage criteria for LVH, may be normal variant Abnormal ECG When compared with ECG of 25-MAY-1995 04:39, Right bundle branch block is now Present 25mm/s 10mm/mV 150Hz 8.0 SP2 12SL 241 DAMARIS: 0 Referred by: Unconfirmed Vent. rate 82 BPM NC interval 174 ms QRS duration 128 ms QT/QTc 388/453 ms P-R-T axes 27 - 31 1940 (77 yr) Male Room: Loc:15 [employer] Salesperson:SRIKANTH Jackson ind: Impression Assessment and Plan Patient is a pleasant 77 y/o male, with PMHx of HTN, CKD stage III, and HLD, who presented to the ED because of worsening L-sided chest pain x1 month. 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
[2018-03-26 20:34] VITALS: BP 130/86; PULSE 81; TEMP 36.7; O2SAT 95
[2018-03-26 20:35] VITALS: BP 130/86; PULSE 81; TEMP 36.7; O2SAT 95; Ht 177.8 cm; Wt 121.0 kg
[2018-03-26] MEDS ORDERED: NITROGLYCERIN 2% OINTMENT 30GM TUBE EXT SCH (22:00)
[2018-03-26] MEDS: HEPARIN SOD 5000 UNIT/0.5 ML CARP SQ SCH (22:00)
[2018-03-26 23:18] VITALS: BP 132/68; PULSE 64; TEMP 36.7; O2SAT 94
[2018-03-26] MEDS: NITROGLYCERIN 2% OINTMENT 30GM TUBE EXT SCH (23:22)
[2018-03-27] MEDS ORDERED: SODIUM CHLORIDE 0.9% 1000ML 1,000 ML IV SCH
[2018-03-27 00:49] LABS: CKMB 1.6 ng/ml (0.5-3.6)
[2018-03-27 04:00] VITALS: BP 144/77; PULSE 70; TEMP 36.7; O2SAT 93
[2018-03-27] MEDS: HEPARIN SOD 5000 UNIT/0.5 ML CARP SQ SCH (06:00)
[2018-03-27 06:02] LABS: CALCIUM 8.7 mg/dl (8.5-10.1); CREATININE 1.34 mg/dl (0.60-1.40); POTASSIUM 3.8 mmol/L (3.5-5.1)
[2018-03-27] MEDS: NITROGLYCERIN 2% OINTMENT 30GM TUBE EXT SCH ×2 (06:06→12:00)
[2018-03-27 06:38] VITALS: BP 143/74; PULSE 66; TEMP 36.6; O2SAT 94
--- NOTE | 2018-03-27 07:31 | Progress Note ---
Subjective Date of Service: March 27, 2018. Problem List Medical Problems: (1) Unstable angina Status: Acute Objective Vital Signs Date Time Temp Pulse Resp B/P (MAP) Pulse Ox O2 Delivery O2 Flow Rate FiO2 03/27/18 06:38 36.6 66 20 143/74 (97) 94 Room Air 03/27/18 04:00 36.7 70 18 144/77 (99) 93 Room Air 03/27/18 04:00 Room Air 03/27/18 00:01 Room Air 03/26/18 23:18 36.7 64 18 132/68 (89) 94 Room Air 03/26/18 20:35 36.7 81 27 130/86 95 Room Air 03/26/18 20:34 36.7 81 27 130/86 (101) 95 Room Air 03/26/18 20:00 72 19 134/63 95 Room Air 03/26/18 19:30 70 20 130/68 94 Room Air 03/26/18 19:00 79 19 142/75 95 Room Air 03/26/18 18:26 75 23 151/80 95 Room Air 03/26/18 17:08 81 03/26/18 16:54 36.7 94 18 165/77 94 Room Air Laboratory Results Last 24 Hours Test 03/26/18 17:26 03/26/18 18:48 03/27/18 00:19 03/27/18 05:09 White Blood Count 10.30 K/uL Red Blood Count 4.71 M/uL Hemoglobin 14.4 g/dL Hematocrit 42.0 % Mean Corpuscular Volume 89.2 fL Mean Corpuscular Hemoglobin 30.6 pg Mean Corpuscular Hemoglobin Concent 34.3 g/dl Platelet Count 224 K/uL Mean Platelet Volume 10.1 fL Neutrophils (%) (Auto) 59.7 % Lymphocytes (%) (Auto) 24.5 % Monocytes (%) (Auto) 10.4 % Eosinophils (%) (Auto) 4.5 % Basophils (%) (Auto) 0.3 % Neutrophils # (Auto) 6.16 K/uL Lymphocytes # (Auto) 2.52 K/uL Monocytes # (Auto) 1.07 K/uL Eosinophils # (Auto) 0.46 K/uL Basophils # (Auto) 0.03 K/uL RDW Standard Deviation 43.4 fL RDW Coefficient of Variation 13.2 % Immature Granulocyte % (Auto) 0.6 % Immature Granulocyte # (Auto) 0.06 K/uL Prothrombin Time 10.9 SECONDS Prothromb Time International Ratio 1.0 Activated Partial Thromboplast Time 25.9 SECONDS Partial Thromboplastin Ratio 1.0 Sodium Level 136 mmol/L 136 mmol/L Potassium Level 3.7 mmol/L 3.8 mmol/L Chloride Level 104 mmol/L 107 mmol/L Carbon Dioxide Level 26 mmol/L 24 mmol/L Anion Gap 7.0 mmol/L 5.0 mmol/L Blood Urea Nitrogen 20 mg/dl 26 mg/dl Creatinine 1.49 mg/dl 1.34 mg/dl Est Creatinine Clear Calc Drug Dose 52.9 ml/min 58.8 ml/min Estimated GFR () 51.0 58.0 Estimated GFR (Non- 44.0 50.0 BUN/Creatinine Ratio 13.7 19.5 Random Glucose 146 mg/dl 111 mg/dl Calcium Level 8.9 mg/dl 8.7 mg/dl Total Bilirubin 0.5 mg/dl Direct Bilirubin 0.1 mg/dl Aspartate Amino Transf (AST/SGOT) 31 U/L Alanine Aminotransferase (ALT/SGPT) 23 U/L Alkaline Phosphatase 95 U/L Total Creatine Kinase 219 U/L Creatine Kinase MB 1.9 ng/ml 1.6 ng/ml Creatine Kinase MB Ratio 0.9 Troponin I < 0.015 ng/ml < 0.015 ng/ml Total Protein 8.2 gm/dl Albumin 3.3 gm/dl Urine Color YELLOW Urine Appearance CLEAR Urine pH 6.0 Urine Specific Anthony 1.017 Urine Protein NEG Urine Glucose (UA) NEG Urine Ketones NEG Urine Occult Blood NEG Urine Nitrite NEG Urine Bilirubin NEG Urine Urobilinogen NEG Urine Leukocyte Esterase NEG Triglycerides Level 145 mg/dl Cholesterol Level 125 mg/dl HDL Cholesterol 39 mg/dl LDL Cholesterol, Calculated 57 mg/dl VLDL Cholesterol, Calculated 29 mg/dl Cholesterol/HDL Ratio 3.2 Assessment and Plan Patient is a pleasant 77 y/o male, with PMHx of HTN, CKD stage III, and HLD, who presented with worsening L-sided chest pain x1 month. 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
[2018-03-27 08:05] LABS: HEMOGLOBIN A1C 6.5 % (4.5-5.6)
[2018-03-27] MEDS ORDERED: ASPIRIN 81 MG ECTAB PO SCH (09:00)
[2018-03-27] MEDS ORDERED: PANTOprazole SOD 40 MG TAB PO SCH (09:00)
[2018-03-27] MEDS ORDERED: SIMVASTATIN 40 MG TAB PO SCH (09:00)
[2018-03-27] MEDS ORDERED: LISINOPRIL/HCTZ 20/25MG TAB PO SCH (09:00)
[2018-03-27 09:46] LABS: CKMB 1.9 ng/ml (0.5-3.6)
[2018-03-27] MEDS ORDERED: KETOROLAC TROMETHAMINE 30 MG/ML VIAL ONE (11:42)
[2018-03-27 11:45] VITALS: BP 140/84; PULSE 68; TEMP 36.7; O2SAT 96
[2018-03-27] MEDS ORDERED: NURSING VERBAL MED ORDER ONE (12:15)
--- NOTE | 2018-03-27 13:37 | Discharge Instructions ---
Discharge Instructions Date of Service March 27, 2018. Admission Reason for Admission: Unstable Angina Discharge Discharge Diagnosis / Problem: non cardiac chest pain Discharge Goals Goal(s): Diagnostic testing, Therapeutic intervention Activity Recommendations Activity Limitations: as noted below Lifting Limitations: gradually increase as tolerated . Current Hospital Diet Patient's current hospital diet: AHA Diet (Heart Healthy) Discharge Diet Recommended Diet: Low Sodium Diet (2gm Na) Pending Studies Studies pending at discharge: no Laboratory Results Hemoglobin A1c Test 03/27/18 05:09 Range/Units Estimated Average Glucose 140 mg/dl Hemoglobin A1c 6.5 H 4.5-5.6 % Lipid Panel Test 03/27/18 05:09 Range/Units Triglycerides Level 145 0-150 mg/dl Cholesterol Level 125 0-200 mg/dl HDL Cholesterol 39 mg/dl Cholesterol/HDL Ratio 3.2 LDL Cholesterol, Calculated 57 mg/dl Medical Emergencies . Who to Call and When: Medical Emergencies: If at any time you feel your situation is an emergency, please call 911 immediately. . Non-Emergent Contact Non-Emergency issues call your: Primary Care Provider Call Non-Emergent contact if: temperature is above 101, your pain is unusual for you . . "Provider Documentation" section prepared by Fuad Betts. .
--- NOTE | 2018-03-27 14:01 | CARDIOLOGY CONSULTATION ---
DATE OF CONSULTATION: 03/27/2018 PERTINENT HISTORY: Mr. Pedroza is a 77-year-old male admitted yesterday with a chest pain syndrome. This consultation was ordered to assist in his cardiac management. The patient claims he was in his usual state of health until approximately 10 days ago when he developed a "severe cold." Approximately 1 week ago, the patient was coughing and sneezing excessively. He noted the onset of a left-sided chest pain after a "violent" sneeze. Since that time, he has noticed a vague left-sided chest discomfort, which occasionally radiates to his arm. It occurs several times every day and lasts for up to 10 minutes. There are no associated symptoms such as shortness of breath, nausea, vomiting, diaphoresis, or palpitations. On occasion, repositioning his left upper extremity can alleviate his symptoms. It has also improved with the administration of antacids. On several occasions, it increases with deep breathing. This discomfort has never occurred with physical exertion. The patient did have a negative dobutamine stress echocardiogram performed in January 2016. He has never had a cardiac catheterization. He has never experienced classic exertional angina pectoris, limiting dyspnea, syncope, presyncope, PND, orthopnea, palpitations, lower extremity edema, or claudication. Currently, patient is resting comfortably in bed without complaints. PAST MEDICAL HISTORY: 1. Hypertension. 2. Moderate left ventricular hypertrophy. 3. Negative dobutamine stress test, January 2016. 4. Hypercholesterolemia. 5. Diastolic dysfunction. 6. Hyperglycemia. 7. Chronic renal failure. 8. Pulmonary hypertension. 9. Obstructive sleep apnea. 10. Obesity. 11. Spinal stenosis. 12. Polyneuropathy. 13. Chronic fatigue syndrome. 14. Benign essential tremor. 15. DJD. 16. Vitamin D deficiency. 17. Cholelithiasis. 18. Intraocular lens implant. 19. Appendectomy. 20. Left hand trauma, loss of digits 2, 3, and 4. 21. Inguinal hernia repair. MEDICATIONS: 1. Lisinopril/hydrochlorothiazide 20/25 mg 1 tablet daily. 2. Nitroglycerin paste 1 inch q.6 h. 3. Heparin 5000 units subcu q.8 h. 4. Simvastatin 40 mg at bedtime. 5. Aspirin 81 mg per day. 6. Protonix 40 mg per day. ALLERGIES: None. SOCIAL HISTORY: The patient is and lives with his . Retired truck service manager. He does not use tobacco or alcohol. FAMILY HISTORY: No early coronary artery disease. REVIEW OF SYSTEMS: A 10-point review of systems was negative except for that described above. PHYSICAL EXAMINATION: GENERAL: This is an obese white male lying supine in bed without complaints. VITAL SIGNS: Blood pressure is 140/74, with a regular pulse of 66, respiratory rate is 20, the patient is afebrile at 36.6 degrees Celsius, saturation is 94% on room air. HEENT: Negative. NECK: Supple, with full carotid upstrokes. There are no carotid bruits. Jugular venous pressure is flat at 90 degrees. There is no thyromegaly. CARDIOVASCULAR: Exam reveals a regular rhythm, with normal S1 and S2. Heart sounds are distant. No obvious murmurs. RESPIRATORY: Lungs are clear without rales, rhonchi, or wheezes. GASTROINTESTINAL: Abdomen is obese, without bruits. MUSCULOSKELETAL: Extremities reveal intact radial artery and posterior tibial pulses bilaterally. There is no peripheral edema. LABORATORYO DATA: CBC notes hemoglobin 14.4, hematocrit 42.0, white count 10.3, platelet count 224,000. Electrolytes note a sodium of 136, potassium 3.8, chloride 107, bicarbonate 24, BUN 26, creatinine 1.34, glucose 111. Two troponin I levels are undetectable, less than 0.015. CK is 219, with an MB fraction of 1.9. Followup MB fraction was 1.6. LDL cholesterol of 57, with an HDL of 39. EKG notes sinus rhythm with the left axis deviation, complete right bundle-branch block. Chest x-ray notes cardiomegaly and an elevated right hemidiaphragm. There is evidence of atelectasis. IMPRESSION: Mr. Pedroza was admitted with an atypical chest pain syndrome. There was significant tenderness to palpation along the left parasternal region and the left pectoralis muscle. His history suggests improvement in his symptoms when repositioning his left upper extremity or taking antacids. His unremarkable EKG and undetectable troponin levels suggest this is not cardiac in nature. The patient is interested in performing a stress test. I feel this can safely be performed as an outpatient. PLAN: 1. Trial of intravenous Toradol. 2. Ambulate in hallways. 3. The patient to be doing stress test next week.
[2018-03-27 14:59] VITALS: BP 140/84; PULSE 68; TEMP 36.7; O2SAT 96
--- NOTE | 2018-03-27 18:46 | Discharge Summary ---
Discharge Summary Date of Service March 27, 2018. Discharge Summary Admission Date: March 26, 2018 at 19:14 Discharge Date: March 27, 2018 Discharge Disposition: Home Principal Diagnosis: non cardiac chest pain Medication Reconciliation Continued Medications: Aspirin (Aspirin Ec) 81 Mg Tab 81 MG PO 3XWK PT TAKES ON THURSDAY, THURSDAY AND FRIDAYS Cholecalciferol (Vitamin D3) 1,000 Unit Tab 1 TAB PO DAILY for 90 Days, #90 TAB 3 Refills Lisinopril/Hctz (Prinzide 20-25MG) Tab 1 TAB PO DAILY, TAB Simvastatin (Zocor) 40 Mg Tab 40 MG PO DAILY, TAB Discharge Exam Review of Systems: Constitutional: No fever, No chills Respiratory: No cough, No sputum Cardiovascular: + chest pain (reproducable with palpation and movement of shoulder) Abdomen: No pain, No nausea, No vomiting Musculoskeletal: + joint pain, + muscle pain Physical Exam: General Appearance: WD/WN, + mild distress Eyes: normal inspection, sclerae normal Neck: supple, no JVD Respiratory/Chest: chest non-tender, lungs clear, normal breath sounds Cardiovascular: regular rate, rhythm, no murmur Abdomen / GI: normal bowel sounds, non tender, soft Hospital Course Patient is a pleasant 77 y/o male, with PMHx of HTN, CKD stage III, and HLD, who presented with worsening L-sided chest pain x1 month. 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 Discharge Instructions Please refer to the electronic Patient Visit Report (Discharge Instructions) for additional information.
== END 2018-03-27 17:45 | disposition home or self-care (01) | DRG 313 ==
LOC: C.EDB 16:53 → C.2E 19:14 → ENRESERV 20:03
PROVIDERS: ADMIT Hospitalist; ATTEND Hospitalist
DX: R07.89 Other chest pain (principal); I12.9 Hypertensive chronic kidney disease with stage 1 through stage 4 chronic kidney disease, or unspecified chronic kidney disease; N18.3 Chronic kidney disease, stage 3 (moderate); E78.5 Hyperlipidemia, unspecified; Z79.82 Long term (current) use of aspirin; Z79.899 Other long term (current) drug therapy; Z82.49 Family history of ischemic heart disease and other diseases of the circulatory system

== ENCOUNTER → 2018-04-02 | Outpatient (CLI) | payer OTHER ==
[~2018-04-02] MED LIST changes: -ASPCH81 PO; +ASPI81TA28 PO; +CHOL1000 PO; -CHOL100010 PO; -PRED1SUS3 OPL
--- NOTE | 2018-04-02 12:22 | DIAGNOSTIC IMAGING REPORT ---
R KNEE 1 OR 2 VIEWS ROUTINE CLINICAL HISTORY: Right knee pain. Trauma. COMPARISON: None. DISCUSSION: No acute fractures or dislocations are visualized. There are osteoarthritic changes present. There is medial joint compartment narrowing. There is dorsal patellar spurring. IMPRESSION: Osteoarthritic change. No acute fractures. Electronically signed by: Yaniv Ryder M.D. 04/02/2018 12:21 PM Dictated Date/Time: 04/02/2018 12:20 PM
--- NOTE | 2018-04-02 12:23 | DIAGNOSTIC IMAGING REPORT ---
L SHOULDER MIN 2 VIEWS ROUTINE CLINICAL HISTORY: Left shoulder pain. History of trauma. COMPARISON: None. DISCUSSION: No acute fractures or dislocations are visualized. Degenerative changes are present within the chromic clavicular joint with inferior hypertrophic spurring. There is a small peritendinous calcification at the level of the greater tuberosity. IMPRESSION: 1. No acute fractures 2. Degenerative changes with inferior hypertrophic spurring at the AC joint. Electronically signed by: Yaniv Ryder M.D. 04/02/2018 12:22 PM Dictated Date/Time: 04/02/2018 12:21 PM
--- NOTE | 2018-04-02 12:34 | DIAGNOSTIC IMAGING REPORT ---
CERVICAL SPINE 2 OR 3 VIEWS CLINICAL HISTORY: R29.898 Left arm weakness neck pain status post trauma COMPARISON STUDY: No previous studies for comparison. FINDINGS: The prevertebral soft tissues are normal. No fractures or subluxations are visualized. There are multilevel degenerative changes present most pronounced at the C5-6 and C6-7 levels. IMPRESSION: Degenerative change. No fractures or subluxations identified Electronically signed by: Yaniv Ryder M.D. 04/02/2018 12:32 PM Dictated Date/Time: 04/02/2018 12:32 PM
--- NOTE | 2018-04-02 12:41 | DIAGNOSTIC IMAGING REPORT ---
L RIBS UNILATERAL WITH PA CHEST CLINICAL HISTORY: R07.9 Chest painW19.XXXA Fall trauma. Pain. COMPARISON STUDY: None FINDINGS: Nondisplaced cortical fracture left seventh rib. This appears to be through an existing healed fracture. All remaining ribs are considered unremarkable. No evidence of pneumothorax. IMPRESSION: Nondisplaced cortical fracture left seventh rib. Lungs are clear with no evidence for pneumothorax. The above report was generated using voice recognition software. It may contain grammatical, syntax or spelling errors. Electronically signed by: Michael Sanchez M.D. 04/02/2018 12:40 PM Dictated Date/Time: 04/02/2018 12:35 PM
--- NOTE | 2018-04-02 12:43 | DIAGNOSTIC IMAGING REPORT ---
L SCAPULA CLINICAL HISTORY: M25.561 Right knee painW19.XXXA FallM25.512 Left shoulder pain trauma. Pain. COMPARISON: None. DISCUSSION: Moderate degenerative change left shoulder and acromioclavicular joint. No acute bony abnormality. This examination specifically is negative for fracture or dislocation. There is no evidence for soft tissue swelling. IMPRESSION: Degenerative change. No acute bony abnormality. The above report was generated using voice recognition software. It may contain grammatical, syntax or spelling errors. Electronically signed by: Michael Sanchez M.D. 04/02/2018 12:41 PM Dictated Date/Time: 04/02/2018 12:40 PM
== END | disposition home or self-care (01) ==
LOC: C.RADBC 11:43
PROVIDERS: ATTEND Physician Assistant Medical
DX: R29.898 Other symptoms and signs involving the musculoskeletal system (principal); M25.512 Pain in left shoulder; M25.561 Pain in right knee; W19.XXXA Unspecified fall, initial encounter; R07.9 Chest pain, unspecified

== ENCOUNTER → 2018-06-16 | Outpatient (CLI) | payer OTHER ==
[~2018-06-16] MED LIST changes: +BICA50TA40 PO; +TRAM-10 PO
[2018-06-16 14:13] LABS: BLOOD UREA NITROGEN 19 mg/dl (7-18); CALCIUM 9.2 mg/dl (8.5-10.1); CARBON DIOXIDE 25 mmol/L (21-32); CREATININE 1.35 mg/dl (0.60-1.40); GLUCOSE 113 mg/dl (70-99); POTASSIUM 4.3 mmol/L (3.5-5.1); SODIUM 132 mmol/L (136-145)
== END | disposition home or self-care (01) ==
LOC: C.LAB 11:57
PROVIDERS: ATTEND Nurse Practitioner Adult Health
DX: E87.1 Hypo-osmolality and hyponatremia (principal)

== ENCOUNTER → 2018-06-23 | Outpatient (CLI) | payer OTHER ==
--- NOTE | 2018-06-23 16:06 | DIAGNOSTIC IMAGING REPORT ---
WHOLE-BODY NUCLEAR BONE SCAN CLINICAL HISTORY: Metastatic prostate cancer. COMPARISON STUDY: CT scan of the chest, abdomen, and pelvis dated 05/28/2018. MRI of the lumbar spine dated 05/28/2018 and the thoracic spine dated 05/27/2018. TECHNIQUE: Three hours following the IV administration of 26.3 mCi of technetium 99m MDP, whole body nuclear bone scan was performed in the anterior and posterior projections. FINDINGS: There is extensive abnormal tracer deposition consistent with widespread osseous metastatic disease. Extensive lesions are seen throughout the spine. Lesions are also seen within the sternum, the sacrum, the right ileum, and the right proximal humeral shaft. There are numerous bilateral rib lesions. Activity within the cervical spine could be related to metastatic disease versus degenerative change. Typically degenerative uptake is identified in the shoulders, knees, ankles, and first metatarsophalangeal joints. There is expected excreted activity within the renal collecting system and bladder. Urine contamination is noted in the groin. IMPRESSION: Findings are consistent with diffuse/multifocal osseous metastatic disease as above. Electronically signed by: Raj Guerrier M.D. 06/23/2018 4:05 PM Dictated Date/Time: 06/23/2018 4:01 PM
== END | disposition home or self-care (01) ==
LOC: C.NUCL 10:11
PROVIDERS: ATTEND Radiology Radiation Oncology
DX: C61 Malignant neoplasm of prostate (principal); C79.51 Secondary malignant neoplasm of bone